=== PATIENT | female | born 1965 | race Caucasian/White ===

== ENCOUNTER 2021-07-05 18:18 | Emergency (ER) | payer SELFPAY ==
[~2021-07-05] VITALS: Ht 162.6 cm; Wt 74.8 kg
[2021-07-05 18:31] VITALS: BP 112/56
[2021-07-05 20:52] LABS: BASOPHILS % (AUTO) 0.2 % (0.0-2.0); EOSINOPHILS % (AUTO) 0.1 % (0.0-4.0); HEMATOCRIT 37.9 % (36-48); HEMOGLOBIN 12.6 g/dL (12.0-16.0); LYMPHOCYTES # (AUTO) 1.1 K/uL (2.5-16.5); LYMPHOCYTES % (AUTO) 9.8 % (20.5-51.1); MEAN CORPUSCULAR HEMOGLOBIN 30 pg (27-31); MEAN CORPUSCULAR HGB CONC 33 g/dL (33-37); MEAN CORPUSCULAR VOLUME 90.4 fL (80-94); MONOCYTES # (AUTO) 0.5 K/uL (0.8-1.0); MONOCYTES % (AUTO) 4.5 % (1.7-9.3); NEUTROPHILS % (AUTO) 85.4 % (42.2-75.2); PLATELET COUNT (AUTO) 339 K/uL (140-450); RED CELL DISTRIBUTION WIDTH 13.3 % (11.6-13.7); WHITE BLOOD COUNT (AUTO) 11.7 K/uL (4.8-10.8)
[2021-07-05 21:11] LABS: ALBUMIN 3.9 g/dL (3.4-5.0); ANION GAP 10.8 (8-16); CREATININE 0.9 mg/dL (0.6-1.3); POTASSIUM 3.8 mmol/L (3.5-5.1); TOTAL BILIRUBIN 0.3 mg/dL (0.0-1.0)
[2021-07-05] MEDS ORDERED: MECL-303 PO (21:32)
--- NOTE | 2021-07-05 21:38 | NUR ---
d/c with [facility]. d/c education given. opportunity to ask questions given and answered. rx of meclizine given.
== END 2021-07-05 21:38 | disposition home or self-care (01) ==
LOC: MED 18:18
DX: R42 Dizziness and giddiness (principal); Z79.899 Other long term (current) drug therapy
CPT/HCPCS: 36415; 70450; 80053; 85025; 93005; 99285